=== PATIENT | female | born 1960 | race Caucasian/White ===

== ENCOUNTER → 2017-03-16 | Outpatient (CLI) | payer OTHER ==
[~2017-03-16] VITALS: Ht 165.1 cm; Wt 72.6 kg
[~2017-03-16] MED LIST: MEPERIDINE (DEMEROL) INJ 100 MG/ML IM ONE
[2017-03-16 16:05] VITALS: BP 119/58
[2017-03-16 16:15] VITALS: BP 119/58
== END ==
LOC: SDC 15:27
PROVIDERS: ATTEND Internal Medicine
DX: G43.909 Migraine, unspecified, not intractable, without status migrainosus (principal)

== ENCOUNTER → 2017-09-29 | Outpatient (CLI) | payer OTHER ==
[~2017-09-29] VITALS: Ht 165.1 cm; Wt 72.1 kg
[~2017-09-29] MED LIST changes: +MEPERIDINE (DEMEROL) INJ 100 MG/ML IM NR; -MEPERIDINE (DEMEROL) INJ 100 MG/ML IM ONE; +MEPERIDINE (DEMEROL) INJ 50 MG/ML IM NR; +hydrOXYzine (VISTARIL) 25 MG CAP PO NR
[2017-09-29 13:38] VITALS: BP 122/77
== END ==
LOC: 4THo 12:35
PROVIDERS: ATTEND Internal Medicine
DX: G43.009 Migraine without aura, not intractable, without status migrainosus (principal)